=== PATIENT | male | born 1990 | race American Indian/Alaskan Native ===

== ENCOUNTER 2018-07-05 07:50 | Emergency (ER) | payer SELFPAY ==
[2018-07-05 07:59] VITALS: BP 122/83
--- NOTE | 2018-07-05 08:42 | XRay Report ---
BILATERAL FEET, 3 VIEWS History: Pain and swelling in both feet after fall. Findings: A comminuted, nondisplaced left calcaneal fracture is identified. The remaining bony structures in the left foot are intact. A moderate hallux valgus deformity is identified. No erosive joint pathology. The bony structures and joint spaces within the right foot are within normal limits. Impression: Comminuted left calcaneus fracture.
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
== END 2018-07-05 10:20 | disposition home or self-care (01) ==
LOC: ED 07:50
DX: S92.002A Unspecified fracture of left calcaneus, initial encounter for closed fracture (principal); F17.200 Nicotine dependence, unspecified, uncomplicated; X50.1XXA Overexertion from prolonged static or awkward postures, initial encounter; Y93.89 Activity, other specified; Y92.009 Unspecified place in unspecified non-institutional (private) residence as the place of occurrence of the external cause; Y99.8 Other external cause status
CPT/HCPCS: 99284